=== PATIENT | male | born 1940 | race Caucasian/White ===

== ENCOUNTER 2020-03-14 11:26 | Outpatient (CLI) | payer MEDICARE ==
[~2020-03-14 11:26] MED LIST: REGADENOSON 0.4 MG/5 ML SYRINGE ONE
== END 2020-03-14 23:59 | disposition home or self-care (01) ==
LOC: CVU 11:26 → CFH 23:59
PROVIDERS: ATTEND Internal Medicine Cardiovascular Disease
DX: I08.8 Other rheumatic multiple valve diseases (principal); I21.29 ST elevation (STEMI) myocardial infarction involving other sites; I27.20 Pulmonary hypertension, unspecified; I11.0 Hypertensive heart disease with heart failure; I48.91 Unspecified atrial fibrillation; I50.9 Heart failure, unspecified
CPT/HCPCS: 78452; 93017; 93306; A9502; J2785

== ENCOUNTER 2020-04-06 10:26 | Day surgery (SDC) | payer MEDICARE ==
[~2020-04-06] VITALS: Ht 182.9 cm; Wt 125.0 kg
[2020-04-06 10:52] VITALS: BP 138/94
[2020-04-06] MEDS ORDERED: APIX5TAB PO (11:13)
[2020-04-06] MEDS ORDERED: FURO-93 PO (11:13)
[2020-04-06] MEDS ORDERED: METO-93 PO (11:13)
[2020-04-06] MEDS ORDERED: PROPOFOL 10 MG/ML, 20ML ONE (12:31)
[2020-04-06] MEDS ORDERED: AMIO200T42 PO (12:50)
[2020-04-06] MEDS ORDERED: AMIODARONE 200 MG TABLET PO ONE (13:00)
== END 2020-04-06 14:00 | disposition home or self-care (01) ==
LOC: CACL 10:26
PROVIDERS: ATTEND Internal Medicine Cardiovascular Disease
DX: I48.91 Unspecified atrial fibrillation (principal); I42.8 Other cardiomyopathies; I11.0 Hypertensive heart disease with heart failure; I50.23 Acute on chronic systolic (congestive) heart failure; E78.5 Hyperlipidemia, unspecified; Z79.01 Long term (current) use of anticoagulants; Z79.899 Other long term (current) drug therapy
CPT/HCPCS: 92960; 93005; J2704

== ENCOUNTER 2020-06-06 06:43 | Day surgery (SDC) | payer MEDICARE ==
[~2020-06-06] VITALS: Ht 182.9 cm; Wt 106.8 kg
[~2020-06-06 06:43] MED LIST changes: +AMIO200T42 PO; +APIX5TAB PO; +FURO-93 PO; +METO-93 PO; -REGADENOSON 0.4 MG/5 ML SYRINGE ONE
[2020-06-06 06:57] VITALS: BP 126/98
[2020-06-06] MEDS ORDERED: LISI5TAB7 PO (07:05)
[2020-06-06] MEDS ORDERED: METO5TAB5 PO (07:05)
[2020-06-06] MEDS ORDERED: TADA10TA PO (07:05)
[2020-06-06] MEDS ORDERED: AMIO200T42 PO (07:05)
[2020-06-06] MEDS ORDERED: METO50TA82 PO ×2 (07:08)
[2020-06-06 07:38] LABS: ANION GAP 5 mmol/L (5-15); CALCIUM 9.2 mg/dL (8.5-10.1); CHLORIDE 106 mmol/L (98-107); CREATININE 2.19 mg/dL (0.7-1.3)
[2020-06-06] MEDS ORDERED: PROPOFOL 10 MG/ML, 100ML IV ONE (07:42)
== END 2020-06-06 09:03 | disposition home or self-care (01) ==
LOC: CACL 06:43
PROVIDERS: ATTEND Internal Medicine Cardiovascular Disease
DX: I48.20 Chronic atrial fibrillation, unspecified (principal); I42.9 Cardiomyopathy, unspecified; I49.3 Ventricular premature depolarization; I44.7 Left bundle-branch block, unspecified; I13.0 Hypertensive heart and chronic kidney disease with heart failure and stage 1 through stage 4 chronic kidney disease, or unspecified chronic kidney disease; N18.9 Chronic kidney disease, unspecified; I50.9 Heart failure, unspecified; E78.5 Hyperlipidemia, unspecified; Z79.01 Long term (current) use of anticoagulants; Z79.899 Other long term (current) drug therapy
CPT/HCPCS: 36415; 80048; 92960; 93005; J2704

== ENCOUNTER → 2020-06-27 | Outpatient (CLI) | payer MEDICARE ==
[~2020-06-27] MED LIST changes: +LISI5TAB7 PO; +METO50TA82 PO; +METO5TAB5 PO; +TADA10TA PO
== END | disposition home or self-care (01) ==
LOC: CVU 10:23
PROVIDERS: ATTEND Physician Assistant Medical
DX: I08.3 Combined rheumatic disorders of mitral, aortic and tricuspid valves (principal); I11.9 Hypertensive heart disease without heart failure; I42.9 Cardiomyopathy, unspecified
CPT/HCPCS: 93306; 93356